=== PATIENT | female | born 1975 | race Caucasian/White ===

== ENCOUNTER 2024-02-21 16:47 | Observation (INO) ==
--- NOTE | 2024-02-21 17:18 | ED.PDOC ---
General ED Provider: Dr. RHINA FISCHER MD Chief Complaint: Shortness of Air Stated Complaint: Patient presents to ER from home via EMS complaining of shortness of breath. Reports onset was earlier today. States that albuterol neb given in route improved symptoms. Says she recently completed antibiotic and steroid course earlier this month for COPD exacerbation. Denies any fever, chills, nausea, vomiting, diarrhea. No other complaints at this time. Time Seen by Provider: 02/21/24 16:50 Mode of Arrival: Ambulance Information Source: Patient Exam Limitations: No limitations Primary Care Provider: JORGE PACK Nursing and Triage Documentation Reviewed and Agree: Yes Does Patient Take Opioids?: Yes Is Patient Opioid Naive?: No What is Opioid Naive?: *Opioid Naive implies the patient is not already taking opioids or not chronically receiving opioids on a daily basis. *PRN dosing is not "usually" associated with tolerance. *Patients are at higher risk of over-sedation and aspiration. Is Patient Opioid Tolerant?: Yes What is Opioid Tolerant?: *Opioid Tolerance implies less than the expected response to an opioid. *Acquired tolerance is defined by the patient taking 60mg of oral morphine daily (or equianalgesic dose of another opioid) for 1 week or more. *Often associated with chronic pain. *May take more than usual dose to achieve desired pain control. Review of Systems Review Of Systems Constitutional: Reports No symptoms All Other Systems: Reviewed and Negative (Except for those listed in the HPI.) [facility] Family History (Updated 02/21/24 @ 23:17 by KATHARINA PEDROZA RN) Other No known health problems Social History Smoking and tobacco status: Current every day smoker Tobacco type: cigarettes Smoking packs per day: 0.5 Years smoked: 25.2 Passive smoking exposure: Yes Smoking status start date: 10/08/98 Alcohol intake: never Substance use type: does not use Surgical History History of cholecystectomy From OV note Jorge Pack APRN 01/04/24 Z90.49 - Acquired absence of other specified parts of digestive tract (ICD- 10) History of hysterectomy From OV note Jorge Pack APRN 01/04/24 Z90.710 - Acquired absence of both cervix and uterus (ICD-10) History of pancreatic surgery From OV note Jorge Pack [facility] 01/04/24 "Suctioning" Z98.890 - Other specified postprocedural states (ICD-10) Female Reproductive History Menstrual Hx Hysterectomy: Yes Physical Exam Physical Exam Appearance: Reports Ill-appearing (Chronic), No pain distress and Well-nourished Ill-appearing: Mild Pain Distress: None Eyes: Reports IVY and EOMI ENT: Reports Ears normal, Nose normal and Oropharynx normal Neck: Supple Respiratory: Reports Airway patent, Breath sounds clear, Breath sounds equal and Respirations nonlabored Cardiovascular: Reports RRR, Pulses normal, No rub and No murmur GI/: Reports Soft and Nontender Musculoskeletal: Reports Normal strength and ROM intact Skin: Reports Warm, Dry and Normal color Neurological: Reports Sensation intact, Motor intact, Alert and Oriented Psychiatric: Reports Affect appropriate and Mood appropriate Interpretation EKG Interpretation EKG Interpretation By: ED Physician Time of EKG #1: 17:24 Rate: Tachy Rhythm: Sinus Ectopy: None [place]: NL ST Segment: Normal Interpretation: Sinus tach, possible left atrial enlargement, interpreted by me. Course Course 02/21/24 17:20 02/21/24 17:20 Orders, Labs, Meds: Lab Review 02/21/24 02/21/24 02/21/24 17:08 17:20 17:37 WBC 15.10 H RBC 4.25 Hgb 12.0 Hct 39.7 MCV 93.4 MCH 28.2 MCHC 30.2 L RDW Coeff of Cathie 15.3 H Plt Count 459 H Immature Gran % (Auto) 0.3 Neut % (Auto) 81.1 H Lymph % (Auto) 8.6 L [place] % (Auto) 3.8 Eos % (Auto) 5.8 Baso % (Auto) 0.4 Neut # (Auto) 12.2 H Lymph # (Auto) 1.3 [place] # (Auto) 0.6 Eos # (Auto) 0.9 H Baso # (Auto) 0.1 Immature Gran # (Auto) 0.0 Sodium 142.5 Potassium 3.84 Chloride 112.2 H Carbon Dioxide 20.2 L Anion Gap 13.94 BUN 6.3 L Creatinine 0.45 L Estimated GFR (MDRD) 147.00 BUN/Creatinine Ratio 14.00 Glucose 116.3 H Lactic Acid 0.53 L Calcium 8.97 Total Bilirubin 0.48 AST 23.0 ALT 9.4 Alkaline Phosphatase 90.0 Total Protein 7.22 Albumin 4.09 Globulin 3.13 Albumin/Globulin Ratio 1.30 Procalcitonin < 0.05 D-Dimer 631.76 H Urine Color Urine Clarity Urine pH Ur Specific [place] Urine Protein Urine Glucose (UA) Urine Ketones Urine Blood Urine Nitrite Urine Bilirubin Urine Urobilinogen Ur Leukocyte Esterase Urine Microscopic RBC Ur Squamous Epith Cells Urine Mucus Urine Opiates Screen Ur Oxycodone Screen Urine Methadone Screen Ur Barbiturates Screen U Tricyclic Antidepress Ur Phencyclidine Scrn Ur Amphetamine Screen U Methamphetamines Scrn U Benzodiazepines Scrn Urine Cocaine Screen U Cannabinoids Screen Influ A Molecular Assay Negative by naat Influ B Molecular Assay Negative by naat RSV Antigen Negative by naat SARS CoV-2 RNA Rapid FAITH Negative 02/21/24 19:05 WBC RBC Hgb Hct MCV MCH MCHC RDW Coeff of Cathie Plt Count Immature Gran % (Auto) Neut % (Auto) Lymph % (Auto) [place] % (Auto) Eos % (Auto) Baso % (Auto) Neut # (Auto) Lymph # (Auto) [place] # (Auto) Eos # (Auto) Baso # (Auto) Immature Gran # (Auto) Sodium Potassium Chloride Carbon Dioxide Anion Gap BUN Creatinine Estimated GFR (MDRD) BUN/Creatinine Ratio Glucose Lactic Acid Calcium Total Bilirubin AST ALT Alkaline Phosphatase Total Protein Albumin Globulin Albumin/Globulin Ratio Procalcitonin D-Dimer Urine Color Yellow Urine Clarity Clear Urine pH 5.5 Ur Specific [place] 1.020 Urine Protein Negative Urine Glucose (UA) Negative Urine Ketones Negative Urine Blood Trace-intact H Urine Nitrite Negative Urine Bilirubin Negative Urine Urobilinogen 0.2 Ur Leukocyte Esterase Negative Urine Microscopic RBC 0-2 Ur Squamous Epith Cells 2-5 Urine Mucus 1+ Urine Opiates Screen Positive H Ur Oxycodone Screen Positive H Urine Methadone Screen Negative Ur Barbiturates Screen Negative U Tricyclic Antidepress Negative Ur Phencyclidine Scrn Negative Ur Amphetamine Screen Negative U Methamphetamines Scrn Negative U Benzodiazepines Scrn Negative Urine Cocaine Screen Negative U Cannabinoids Screen Negative Influ A Molecular Assay Influ B Molecular Assay RSV Antigen SARS CoV-2 RNA Rapid FAITH Orders Category Date Time Status ADMIT OBSERVATION [PLACE PATIENT OBSERVATION] .TO ADMISSION 02/21/24 22:33 Active MEDSURG (MONITORED BED) EKG-(ED ONLY) Stat CARDIO 02/21/24 17:10 Completed NEBULIZER TREATMENT Stat CARDIO 02/21/24 17:07 Completed ACTIVITY .Up ad Elisha CARE 02/21/24 22:37 Active INTAKE & OUTPUT Q8HR CARE 02/21/24 22:37 Active NPO REMINDER: IMAGING ONCE CARE 02/21/24 18:19 Completed TELEMETRY MONITORING TELE CARE 02/21/24 22:34 Active VITAL SIGNS Q8HR CARE 02/21/24 22:37 Active REGULAR DIET DIETARY 02/22/24 Breakfast Ordered CBC W/ AUTO DIFF DAILY@0600 LAB 02/22/24 06:00 Ordered CBC W/ AUTO DIFF DAILY@0600 LAB 02/23/24 06:00 Ordered CBC W/ AUTO DIFF Stat LAB 02/21/24 17:20 Completed CMP [COMPREHENSIVE METABOLIC PANEL] Stat LAB 02/21/24 17:20 Completed COMPREHENSIVE METABOLIC PANEL DAILY@0600 LAB 02/22/24 06:00 Ordered COMPREHENSIVE METABOLIC PANEL DAILY@0600 LAB 02/23/24 06:00 Ordered D-DIMER Stat LAB 02/21/24 17:37 Completed FLU A & B MOLECULAR [FLU A/B MOLECULAR] Stat LAB 02/21/24 17:08 Completed LACTIC ACID Stat LAB 02/21/24 17:20 Completed PROCALCITONIN Stat LAB 02/21/24 17:20 Completed RSV Stat LAB 02/21/24 17:08 Completed SARS COV-2 RNA RAPID FAITH Stat LAB 02/21/24 17:08 Completed URINALYSIS C & S IF INDICATED Stat LAB 02/21/24 19:05 Completed URINE DRUG SCREEN (RAPID FOR ED) [DRUG SCREEN, URINE, LAB 02/21/24 19:05 Completed RAPID] Stat Acetaminophen [Tylenol] Meds 02/21/24 22:37 Active 650 mg PO Q4H PRN Azithromycin [Zithromax] Meds 02/21/24 22:28 Discontinued 500 mg PO ONCE STA Clonazepam [Klonopin] Meds 02/21/24 20:09 Discontinued 0.5 mg PO ONCE STA Dexamethasone Sod Phosphate [Decadron] Meds 02/21/24 17:34 Discontinued 10 mg IM ONCE STA Enoxaparin Sodium [Lovenox] Meds 02/21/24 22:18 Discontinued 50 mg SUBCUT ONCE STA Ipratropium/Albuterol Neb [Duoneb] Meds 02/21/24 17:07 Discontinued 3 ml NEB ONCE STA Ondansetron HCl/Pf [Zofran 4 mg/2 ml] Meds 02/21/24 22:37 Active 4 mg IVP Q6H PRN Ondansetron [Zofran Odt] Meds 02/21/24 17:32 Discontinued 4 mg PO ONCE STA Ondansetron [Zofran Odt] Meds 02/21/24 19:54 Discontinued 4 mg PO ONCE STA Oxycodone-Acetaminophen [Percocet 5-325] Meds 02/21/24 20:09 Discontinued 1 tab PO ONCE STA CHEST, 2 VIEWS PA & LAT Stat RADS 02/21/24 17:10 Completed CTA CHEST PE PROTOCOL Stat RADS 02/21/24 18:19 Ordered VENTILATION/PERFUSION SCAN [PULMONARY VENT/PERFUSION/ RADS 02/22/24 06:00 Ordered NM] Routine Medications Generic Name Dose Route Start Last Admin Trade Name Freq PRN Reason Stop Dose Admin Acetaminophen 650 mg 02/21/24 22:37 Acetaminophen 325 Mg Tablet PO Q4H PRN Mild Pain Albuterol/Ipratropium 3 ml 02/21/24 22:39 Ipratropium/Albuterol Vial.Neb NEB RTQ6H PRN shortness of breath Methylprednisolone Sodium Succinate 40 mg 02/22/24 02:00 Methylprednisolone Sod Succ/Pf 40 Mg/Ml Vial IVP Q8HR TIKI Ondansetron HCl 4 mg 02/21/24 22:37 Ondansetron Hcl/Pf 4 Mg/2 Ml Sdv IVP Q6H PRN Nausea / Vomiting Discontinued Medications Generic Name Dose Route Start Last Admin Trade Name Freq PRN Reason Stop Dose Admin Albuterol/Ipratropium 3 ml 02/21/24 17:07 02/21/24 17:30 Ipratropium/Albuterol Vial.Neb NEB 02/21/24 17:08 3 ml ONCE STA Administration Azithromycin 500 mg 02/21/24 22:28 02/21/24 22:39 Azithromycin 250 Mg Tablet PO 02/21/24 22:29 500 mg ONCE STA Administration Clonazepam 0.5 mg 02/21/24 20:09 02/21/24 20:16 Clonazepam 0.5 Mg Tablet PO 02/21/24 20:10 0.5 mg ONCE STA Administration Dexamethasone Sodium Phosphate 10 mg 02/21/24 17:34 02/21/24 17:52 Dexamethasone Sod Phos 10 Mg/Ml Inj IM 02/21/24 17:35 10 mg ONCE STA Administration Enoxaparin Sodium 50 mg 02/21/24 22:18 02/21/24 22:27 Enoxaparin Sodium 60 Mg/0.6 Ml Syr SUBCUT 02/21/24 22:19 50 mg ONCE STA Administration Ondansetron HCl 4 mg 02/21/24 17:32 02/21/24 17:52 Ondansetron Hcl 4 Mg Tab.Rapdis PO 02/21/24 17:33 4 mg ONCE STA Administration Ondansetron HCl 4 mg 02/21/24 19:54 02/21/24 20:03 Ondansetron Hcl 4 Mg Tab.Rapdis PO 02/21/24 19:55 4 mg ONCE STA Administration Oxycodone/Acetaminophen 1 tab 02/21/24 20:09 02/21/24 20:16 Oxycodone/Acetaminophen 5/325 Mg Tablet PO 02/21/24 20:10 1 tab [place] [address] Diagnostic Imaging Diagnostic Imaging Report : [id number] Signed Patient: MELISSA BHAKTA Acct:[id number] Medical Record: [id number] : 1975 Loc: ED Room/Bed: Age/Sex: 49 / F ADM Status: REG ER Date of Service: 02/21/24 Ordering Physician: RHINA FISCHER MD Procedure(s): CHEST, 2 VIEWS PA & LAT Report Number(s): [id number] Accession Number(s): [id number] cc: RHINA FISCHER MD; JORGE PACK , [place], [facility] EXAM: CHEST TWO VIEWS HISTORY: Shortness of breath FINDINGS: Normal cardiac and mediastinal contours. Normal pulmonary vasculature. Diffuse reticular interstitial coarsening. No consolidative opacity. Acute chest wall abnormality. Prior healed rib fractures on the left. IMPRESSION: Fibrotic lung disease without superimposed infiltrate or consolidative change. No change from 02/08/2024. Dictated By: DM JAQUEZ Signed By: DM JAQUEZ Dictated Date/Time: 02/21/241835 Transcribed Date/Time: 02/21/241835 Signed Date/Time: 02/21/24 1841 Vital Signs: Temp Pulse Resp BP Pulse Ox 02/21/24 22:03 97.9 F 88 18 105/66 93 L 02/21/24 16:49 98 F 111 H 19 128/67 93 L 10:15 - Spoke with on-call hospitalist (TIERRA Chi) regarding pt status and current workup and management for shortness of breath likely related to COPD exacerbation. Labs remarkable for WBC 15.1 and d-dimer 631.76. Multiple IV attempts including u/s guidance at bilateral AC area; unable to utilize vein in this location without collapse. Easily able to obtain a 22G IV of the R hand. Pt has received therapeutic Lovenox 50 mg, dexamethasone, and azithromycin for COPD exacerbation. Agreed to accept pt for observation admission with plan for V/Q scan in the morning to r/o PE. Discharge Plan Discharge Patient Disposition: PLACED OBSERVATION Discharge Problem: COPD (chronic obstructive pulmonary disease) Did you review [place] [employer] for ALL controlled substances?: Not Applicable ED Provider: RHINA FISCHER Condition: Good Physician Progress Note: []
[2024-02-21 17:24] LABS: BASOPHILS # (AUTO) 0.1 K/uL (0-0.2); BASOPHILS % (AUTO) 0.4 % (0.0-3.0); EOSINOPHILS # (AUTO) 0.9 K/ul (0.0-0.7); EOSINOPHILS % (AUTO) 5.8 % (0.0-7.0); HEMATOCRIT 39.7 % (37.0-47.0); IMMATURE GRANULOCYTE % (AUTO) 0.3 % (0.0-5.0); LYMPHOCYTES # (AUTO) 1.3 K/uL (0.60-3.4); LYMPHOCYTES % (AUTO) 8.6 (10.0-50.0); MEAN CORPUSCULAR HEMOGLOBIN 28.2 pg (27.0-31.0); MEAN CORPUSCULAR HGB CONC 30.2 (31.8-35.4); MEAN CORPUSCULAR VOLUME 93.4 fl (81.0-99.0); MONOCYTES # (AUTO) 0.6 K/uL (0.4-2.0); MONOCYTES % (AUTO) 3.8 (0-10); NEUTROPHILS # (AUTO) 12.2 K/ul (2.0-6.9); NEUTROPHILS % (AUTO) 81.1 % (42.2-75.2); PLATELET COUNT 459 10^3/uL (140-440); RDW COEFFICIENT OF VARIATION 15.3 % (11.6-14.8); RED BLOOD COUNT 4.25 10^6/ul (4.20-5.40)
[2024-02-21] MEDS: DUONEB NEB STA (17:30)
[2024-02-21 17:31] LABS: MOLECULAR FLU A NEGATIVE BY NAAT (NEGATIVE); MOLECULAR FLU B NEGATIVE BY NAAT (NEGATIVE); RSV MOLECULAR NEGATIVE BY NAAT (NEGATIVE); SARS COV-2 RNA RAPID NAAT NEGATIVE (NEGATIVE)
[2024-02-21 17:37] LABS: ALANINE AMINOTRANSFERASE 9.4 U/L (0-35); ALBUMIN 4.09 g/dL (3.5-5.0); BILIRUBIN,TOTAL 0.48 mg/dL (0.2-1.3); BLOOD UREA NITROGEN 6.3 mg/dL (7-17); CALCIUM 8.97 mg/dL (8.4-10.2); CARBON DIOXIDE 20.2 mmol/L (22-30.0); CHLORIDE 112.2 mmol/L (98-107); CREATININE 0.45 mg/dL (0.60-1.30); GLUCOSE 116.3 mg/dL (74-106); POTASSIUM 3.84 mmol/L (3.5-5.1); SODIUM 142.5 mmol/L (134.5-145); TOTAL PROTEIN 7.22 g/dL (6.3-8.2)
[2024-02-21] MEDS: ZOFRAN ODT PO STA ×2 (17:52→20:03)
[2024-02-21] MEDS: DECADRON IM STA (17:52)
--- NOTE | 2024-02-21 18:41 | DI ---
EXAM: CHEST TWO VIEWS HISTORY: Shortness of breath FINDINGS: Normal cardiac and mediastinal contours. Normal pulmonary vasculature. Diffuse reticular interstitial coarsening. No consolidative opacity. Acute chest wall abnormality. Prior healed rib fractures on the left. IMPRESSION: Fibrotic lung disease without superimposed infiltrate or consolidative change. Caitlyn kerr from 02/08/2024.
[2024-02-21 19:21] LABS: BILIRUBIN,URINE Negative (NEGATIVE); CLARITY,URINE Clear (CLEAR); COLOR,URINE Yellow (YELLOW); GLUCOSE, URINE (UA) Negative (NEGATIVE); KETONES,URINE Negative (NEGATIVE); LEUKOCYTE ESTERASE ,URINE Negative (NEGATIVE); NITRITE,URINE Negative (NEGATIVE); PH,URINE 5.5 (5-9); PROTEIN,URINE Negative (NEGATIVE); URINE, BLOOD Trace-intact (NEGATIVE); UROBILINOGEN,URINE 0.2 (0.2)
[2024-02-21 19:26] LABS: MUCUS,URINE 1+ (NOT PRESENT); URINE RBC, MICROSCOPIC 0-2 (0-2)
[2024-02-21 19:33] LABS: AMPHETAMINE SCREEN,URINE NEGATIVE (NEGATIVE); BARBITURATE SCREEN,URINE NEGATIVE (NEGATIVE); BENZODIAZEPINES SCREEN,URINE NEGATIVE (NEGATIVE); CANNABINOID SCREEN,URINE NEGATIVE (NEGATIVE); COCAIN SCREEN,URINE NEGATIVE (NEGATIVE); METHADONE URINE SCREEN NEGATIVE (NEGATIVE); METHAMPHETAMINES SCREEN,URINE NEGATIVE (NEGATIVE); OPIATE SCREEN,URINE POSITIVE (NEGATIVE); OXYCODONE URINE SCREEN POSITIVE (NEGATIVE); PHENCYCLIDINE SCREEN,URINE NEGATIVE (NEGATIVE); TRICYCLIC ANTIDEPRESSANTS URIN NEGATIVE (NEGATIVE)
[2024-02-21] MEDS: KLONOPIN PO STA (20:16)
[2024-02-21] MEDS: PERCOCET 5-325 PO STA (20:16)
[2024-02-21] MEDS: LOVENOX SUBCUT STA (22:27)
[2024-02-21] MEDS ORDERED: ZOFRAN 4 MG/2 ML IVP PRN (22:37)
[2024-02-21] MEDS ORDERED: TYLENOL PO PRN (22:37)
[2024-02-21] MEDS: ZITHROMAX PO STA (22:39)
[2024-02-21 23:27] VITALS: BMI 19.9
[2024-02-21] MEDS ORDERED: PERCOCET 7.5-325 PO PRN (23:28)
[2024-02-21] MEDS: NICODERM 21 MG TD SCH (23:55)
[2024-02-22] MEDS: DUONEB NEB PRN (00:08)
[2024-02-22] MEDS: PERCOCET 5-325 PO PRN (02:06)
[2024-02-22] MEDS: SOLU-MEDROL 40 MG IVP SCH (02:06)
[2024-02-22 05:34] LABS: BASOPHILS % (AUTO) 0.2 % (0.0-3.0); HEMOGLOBIN 11.9 g/dl (12.0-16.0); IMMATURE GRANULOCYTE % (AUTO) 0.3 % (0.0-5.0); LYMPHOCYTES # (AUTO) 0.6 K/uL (0.60-3.4); LYMPHOCYTES % (AUTO) 9.9 (10.0-50.0); MEAN CORPUSCULAR HEMOGLOBIN 28.1 pg (27.0-31.0); MEAN CORPUSCULAR HGB CONC 30.5 (31.8-35.4); MONOCYTES % (AUTO) 0.3 (0-10); NEUTROPHILS # (AUTO) 5.2 K/ul (2.0-6.9); NEUTROPHILS % (AUTO) 89.3 % (42.2-75.2); PLATELET COUNT 456 10^3/uL (140-440); RED BLOOD COUNT 4.24 10^6/ul (4.20-5.40)
[2024-02-22 05:45] LABS: WHITE BLOOD COUNT 5.83 K/ul (4.6-10.2)
[2024-02-22 05:47] LABS: ALANINE AMINOTRANSFERASE 9.4 U/L (0-35); ALBUMIN 3.91 g/dL (3.5-5.0); ALKALINE PHOSPHATASE 80.6 U/L (38-126); ASPARTATE AMINO TRANSFERASE 21.9 U/L (14-36); BILIRUBIN,TOTAL 0.58 mg/dL (0.2-1.3); BLOOD UREA NITROGEN 10.7 mg/dL (7-17); CALCIUM 9.22 mg/dL (8.4-10.2); CARBON DIOXIDE 21.3 mmol/L (22-30.0); CHLORIDE 110.5 mmol/L (98-107); CREATININE 0.37 mg/dL (0.60-1.30); GLUCOSE 129.1 mg/dL (74-106); POTASSIUM 4.14 mmol/L (3.5-5.1); SODIUM 140.6 mmol/L (134.5-145); TOTAL PROTEIN 7.08 g/dL (6.3-8.2)
[2024-02-22] MEDS ORDERED: PERCOCET 5-325 PO PRN (08:17)
[2024-02-22] MEDS: SYMBICORT 160-4.5 MCG INHALER IH SCH (09:10)
[2024-02-22] MEDS: DALIRESP PO SCH (09:12)
[2024-02-22] MEDS: PAXIL PO SCH (09:12)
[2024-02-22 10:30] VITALS: BP 113/67; PULSE 105; RESP 16; TEMP 97.6
[2024-02-22] MEDS: KLONOPIN PO PRN (10:31)
--- NOTE | 2024-02-22 10:54 | NM ---
EXAM: VENTILATION PERFUSION LUNG SCAN. DATE: 02/22/2024. COMPARISON: Chest x-ray Performed 02/21/2024. HISTORY: Elevated D-dimer and shortness of breath. TECHNIQUE: The patient was injected with 5.0 mCi of Tc99m MAA and a perfusion lung scan was performed . 32.0 mCi of Tc99m DTPA was used for the ventilation portion of the study. FINDINGS: There is a mild heterogeneity in radiotracer deposition but activity is observed out to the periphery all lobar segments. There is a single subsegmental perfusion defect along the right diaph ragmatic surface with minimal filling on the ventilation portion of the study that corresponds to are a of interstitial prominence on the chest x-ray.. IMPRESSION: Low probability study for the presence of pulmonary emboli..
--- NOTE | 2024-02-22 11:46 | PCM.SS ---
Provider [facility]AI [facility]HI [facility] Date Admission Date: 02/21/24 Discharge Date Discharge Date: 02/22/24 Primary Care Physician Primary Care Physician: JORGE PACK Chief Complaint Reason For Visit: SOB History of Present Illness History of Present Illness: Admitted 02/21/24 22:38, this 49 year old /WHITE/F with pmhx of COPD who presented to ER with sob starting yesterday. Patient was seen earlier in the month for SOB and was given doxycyline and augmentin. She did not take these as the augmentin was too big, but instead her PCP switched her to Levaquin. She states she took 5-6 days of levaquin and just finished it prior to coming in. She states she was also on prednisone 20 mg for 5 days which does seem to really help her. However, she just became sob and wheezy yesterday. States this made her panic and anxious and she ended up throwing up requiring zofran. She denies chest pain. In the ER her O2 sat was 93, but d dimer elevated. CXR unremarkable. They were unable to get appropriate peripheral access to do a CTA to r/o PE. She was admitted to [facility]. Peripheral IV access suitable for a VQ scan was obtained. It was negative for acute PE. She is feeling better today, on RA. She is mildly wheezy but is able to be conversational without dyspnea. She contributes most of her issues to ongoing stress, becomes tearful regarding this. Discussed seeing pcp regarding increasing her paxil if needed. She does state she has some gastritis like symptoms for last few months as well. Admits to taking BC powder with >800 mg aspirin in it a couple times per week for a headache, but nothing else seems to help. Discussed this could be contributing, along with her stress, advised trying prilosec x 2 weeks. Patient is agreeable to plan of care and feels comfortable with discharge. New nebulizer ordered for patient as well, she states she has duoneb medication at home. She also has daliresp but admits she isn't consistent with taking it. Counseled on medication compliance. 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 01/04/24 Z90.49 - Acquired absence of other specified parts of digestive tract (ICD- 10) History of hysterectomy From OV note Jorge Pack WELL TESTING OPERATOR 01/04/24 Z90.710 - Acquired absence of both cervix and uterus (ICD-10) History of pancreatic surgery From OV note Jorge Pack WELL TESTING OPERATOR 01/04/24 "Suctioning" Z98.890 - Other specified postprocedural states (ICD-10) Family History Other No known health problems Social History Smoking and tobacco status: Current every day smoker Tobacco type: cigarettes Smoking packs per day: 0.5 Years smoked: 25.2 Passive smoking exposure: Yes Smoking status start date: 10/08/98 Alcohol intake: never Substance use type: does not use Medications Mecications: Medications at Discharge (Home Meds & RX) oxycodone-acetaminophen 5 mg-325 mg tablet 1 tab PO Q6H PRN severe pain (scale score 7-10) 01/21/24 paroxetine HCl 20 mg tablet 20 mg PO QDAY 01/21/24 budesonide-formoterol HFA 160 mcg-4.5 mcg/actuation aerosol inhaler (Symbicort) 2 puff inhalation BID 02/22/24 clonazepam 0.5 mg tablet 0.5 mg PO BID PRN anxiety 02/22/24 ipratropium 0.5 mg-albuterol 3 mg (2.5 mg base)/3 mL nebulization soln 3 ml inhalation TID 02/22/24 levofloxacin 500 mg tablet 500 mg PO Q24H 02/22/24 roflumilast 500 mcg tablet 500 mcg PO DAILY 02/22/24 Allergies Allergies Allergy/AdvReac Type Severity Reaction Status Date / Time No Known Allergies Allergy Verified 02/21/24 17:15 Review of Systems Head: Reports Normocephalic and Atraumatic Cardiovascular: Denies Chest pain, Chest Pressure or Edema Respiratory: Reports Cough, Shortness of air and Wheeze Gastrointestinal: Reports Nausea and Vomiting; Denies Diarrhea, Constipation or Melena Physical Examination Appearance: Positive No Apparent Distress and Alert and Oriented x3 Head: Positive Normocephalic and Atraumatic Neck: Positive Supple and Non-Tender Heart: Positive RRR Respiratory: Positive Breath Sounds Equal, Respirations Nonlabored and Wheezes; Negative Crackles, Rhonchi or Retractions GI/: Positive Soft, Nontender, Bowel sounds normal and No Distention Extremities: Negative Edema Neurological: Positive Cranial nerves intact, Alert and Oriented Psychiatric: Positive Normal Judgement, Normal Insight, Affect Appropriate and Anxious Vital Signs (Last 4 Hours) Vital Signs Last 4 Hours: Vital Signs: Last 4 Hours 02/22/24 07:55 02/22/24 08:54 02/22/24 10:00 Temperature Temperature Source Pulse Rate Respiratory Rate Blood Pressure Blood Pressure Mean Blood Pressure Location Blood Pressure Position O2 Sat by Pulse Oximetry Oxygen Delivery Method Room Air Room Air Nasal Cannula Oxygen Flow Rate 02/22/24 10:00 02/22/24 11:00 Temperature 97.6 F Temperature Source Temporal Artery Scan Pulse Rate 105 H Respiratory Rate 16 Blood Pressure 113/67 Blood Pressure Mean 82 Blood Pressure Location Left Arm Blood Pressure Position Sitting O2 Sat by Pulse Oximetry 95 Oxygen Delivery Method Nasal Cannula Nasal Cannula Oxygen Flow Rate 2 Labs This Visit Labs This Visit: Labs This Visit 02/21/24 02/21/24 02/21/24 17:08 17:20 17:37 WBC 15.10 H RBC 4.25 Hgb 12.0 Hct 39.7 MCV 93.4 MCH 28.2 MCHC 30.2 L RDW Coeff of Cathie 15.3 H Plt Count 459 H Immature Gran % (Auto) 0.3 Neut % (Auto) 81.1 H Lymph % (Auto) 8.6 L [place] % (Auto) 3.8 Eos % (Auto) 5.8 Baso % (Auto) 0.4 Neut # (Auto) 12.2 H Lymph # (Auto) 1.3 [place] # (Auto) 0.6 Eos # (Auto) 0.9 H Baso # (Auto) 0.1 Immature Gran # (Auto) 0.0 Sodium 142.5 Potassium 3.84 Chloride 112.2 H Carbon Dioxide 20.2 L Anion Gap 13.94 BUN 6.3 L Creatinine 0.45 L Estimated GFR (MDRD) 147.00 BUN/Creatinine Ratio 14.00 Glucose 116.3 H Lactic Acid 0.53 L Calcium 8.97 Total Bilirubin 0.48 AST 23.0 ALT 9.4 Alkaline Phosphatase 90.0 Total Protein 7.22 Albumin 4.09 Globulin 3.13 Albumin/Globulin Ratio 1.30 Procalcitonin < 0.05 D-Dimer 631.76 H Urine Color Urine Clarity Urine pH Ur Specific [place] Urine Protein Urine Glucose (UA) Urine Ketones Urine Blood Urine Nitrite Urine Bilirubin Urine Urobilinogen Ur Leukocyte Esterase Urine Microscopic RBC Ur Squamous Epith Cells Urine Mucus Urine Opiates Screen Ur Oxycodone Screen Urine Methadone Screen Ur Barbiturates Screen U Tricyclic Antidepress Ur Phencyclidine Scrn Ur Amphetamine Screen U Methamphetamines Scrn U Benzodiazepines Scrn Urine Cocaine Screen U Cannabinoids Screen Influ A Molecular Assay Negative by naat Influ B Molecular Assay Negative by naat RSV Antigen Negative by naat SARS CoV-2 RNA Rapid FAITH Negative 02/21/24 02/22/24 19:05 05:15 WBC 5.83 D RBC 4.24 Hgb 11.9 L Hct 39.0 MCV 92.0 MCH 28.1 MCHC 30.5 L RDW Coeff of Cathie 15.0 H Plt Count 456 H Immature Gran % (Auto) 0.3 Neut % (Auto) 89.3 H Lymph % (Auto) 9.9 L [place] % (Auto) 0.3 Eos % (Auto) 0.0 Baso % (Auto) 0.2 Neut # (Auto) 5.2 Lymph # (Auto) 0.6 [place] # (Auto) 0.0 L Eos # (Auto) 0.0 Baso # (Auto) 0.0 Immature Gran # (Auto) 0.0 Sodium 140.6 Potassium 4.14 Chloride 110.5 H Carbon Dioxide 21.3 L Anion Gap 12.94 BUN 10.7 Creatinine 0.37 L Estimated GFR (MDRD) 184.00 BUN/Creatinine Ratio 28.91 Glucose 129.1 H Lactic Acid Calcium 9.22 Total Bilirubin 0.58 AST 21.9 ALT 9.4 Alkaline Phosphatase 80.6 Total Protein 7.08 Albumin 3.91 Globulin 3.17 Albumin/Globulin Ratio 1.23 Procalcitonin D-Dimer Urine Color Yellow Urine Clarity Clear Urine pH 5.5 Ur Specific [place] 1.020 Urine Protein Negative Urine Glucose (UA) Negative Urine Ketones Negative Urine Blood Trace-intact H Urine Nitrite Negative Urine Bilirubin Negative Urine Urobilinogen 0.2 Ur Leukocyte Esterase Negative Urine Microscopic RBC 0-2 Ur Squamous Epith Cells 2-5 Urine Mucus 1+ Urine Opiates Screen Positive H Ur Oxycodone Screen Positive H Urine Methadone Screen Negative Ur Barbiturates Screen Negative U Tricyclic Antidepress Negative Ur Phencyclidine Scrn Negative Ur Amphetamine Screen Negative U Methamphetamines Scrn Negative U Benzodiazepines Scrn Negative Urine Cocaine Screen Negative U Cannabinoids Screen Negative Influ A Molecular Assay Influ B Molecular Assay RSV Antigen SARS CoV-2 RNA Rapid FAITH Imaging Imaging: EXAM: CHEST TWO VIEWS HISTORY: Shortness of breath FINDINGS: Normal cardiac and mediastinal contours. Normal pulmonary vasculature. Diffuse reticular interstitial coarsening. No consolidative opacity. Acute chest wall abnormality. Prior healed rib fractures on the left. IMPRESSION: Fibrotic lung disease without superimposed infiltrate or consolidative change. No change from 02/08/2024. EXAM: VENTILATION PERFUSION LUNG SCAN. DATE: 02/22/2024. COMPARISON: Chest x-ray Performed 02/21/2024. HISTORY: Elevated D-dimer and shortness of breath. TECHNIQUE: The patient was injected with 5.0 mCi of Tc99m MAA and a perfusion lung scan was performed. 32.0 mCi of Tc99m DTPA was used for the ventilation portion of the study. FINDINGS: There is a mild heterogeneity in radiotracer deposition but activity is observed out to the periphery all lobar segments. There is a single subsegmental perfusion defect along the right diaphragmatic surface with minimal filling on the ventilation portion of the study that corresponds to area of interstitial prominence on the chest x-ray.. IMPRESSION: Low probability study for the presence of pulmonary emboli.. Review Review Statement: I have independently reviewed and interpreted the labs/EKGs/imaging that were ordered by the ER provider. I have reviewed all outside records that are available currently in our EMR including imaging/notes/labs from previous visits. Plan Reccomendations/Plan: 1. Acute COPD exacerbation - Solumedrol IV, received azith PO in ER, duonebs q6hr prn, O2 prn. Cont home inhalers and daliresp. 2. Elevated d dimer - Unable to perform CTA due to inadequate peripeheral IV access. Will get VQ scan to r/o PE. Pt given tx dose of lovenox in meantime. 3. Anxiety - Cont home meds Peripheral IV access suitable for a VQ scan was obtained. It was negative for acute PE. She is feeling better today, on RA. She is mildly wheezy but is able to be conversational without dyspnea. She contributes most of her issues to on going stress, becomes tearful regarding this. Discussed seeing pcp regarding increasing her paxil if needed. She does state she has some gastritis like symptoms for last few months as well. Admits to taking BC powder with >800 mg aspirin in it a couple times per week for a headache, but nothing else seems to help. Discussed this could be contributing, along with her stress, advised trying prilosec x 2 weeks. Patient is agreeable to plan of care and feels comfortable with discharge. New nebulizer ordered for patient as well, she states she has duoneb medication at home. She also has daliresp but admits she isn't consistent with taking it. Counseled on medication compliance. We discussed whether or not to trial another antibiotic as she just finished levaquin. She would like to try just steroids. Sent prednisone 20 mg bid x5 days. Discharge diagnosis: 1. Acute COPD exacerbation 2. Anxiety Additional Planning: Case discussed with ED Physician, Dr. Elizabeth. DVT Prophylaxis: Lovenox Advanced Care Plannin minutes spent discussing advance care planning. Smoking Cessation: 3 minutes spent discussing smoking cessation. Admit to: Obs Discussed Plan of Care with Dr. Nick Mckeon. Review With Patient Reviewed with Patient and Family: Patient and family have been counseled on condition and care plan and have no immediate questions. I have personally discussed and reviewed the patient's visit/current labs/imaging/decision making with Dr. Nikc Mckeon, my supervising attending. Total number of minutes spent with patient [ 85 ] min. More than 50% of the time spent with this patient was devoted to counseling and coordination of care. Time of Admission:02/21/24 22:38 Time of Discharge: 02/22/24 0930 Discharge Plan Discharge Discharge Orders: Discharge Patient (ONCE); Ordered 02/22/24 Ordered By: TAI DOSHI Activity Restrictions/Additional Instructions: DISCHARGE TO HOME F/U WITH Primary Care Provider WITHIN 1 WEEK CONSIDER PRILOSEC (OMEPRAZOLE) 20-40 MG DAILY FOR NEXT 2 WEEKS FOR STOMACH PAIN CONTINUE YOUR MEDICATIONS BEFORE; SEE MEDICATION SUMMARY DIET: NORMAL ACTIVITY: TOLERATED Use your Nebulizer as needed Instructions: COPD (Chronic Obstructive Pulmonary Disease) (DC), Chronic Lung Disease and Infection Prevention (DC) Care Plan Goals: Problem: Impaired Respiratory Status Goal: Exhibit optimal respiratory function Instructions: Activities as tolerated Apply oxygen as ordered Elevate head of bed Notify MD of increased congestion Patient Disposition: HOME SELF-CARE Prescriptions: New ondansetron 4 mg tablet,disintegrating 4 mg PO Q6HR PRN (Reason: nausea and vomiting) Qty: 15 0RF prednisone 20 mg tablet 20 mg PO BID 5 Days Qty: 10 0RF Continued oxycodone-acetaminophen 5-325 mg tablet 1 tab PO Q6H PRN (Reason: severe pain (scale score 7-10)) paroxetine HCl 20 mg tablet 20 mg PO QDAY ipratropium-albuterol 0.5 mg-3 mg(2.5 mg base)/3 mL solution for nebulization 3 ml INHALATION TID clonazepam 0.5 mg tablet 0.5 mg PO BID PRN (Reason: anxiety) budesonide-formoterol [Symbicort] 160-4.5 mcg/actuation HFA aerosol inhaler 2 puff INHALATION BID roflumilast 500 mcg tablet 500 mcg PO DAILY Discontinued levofloxacin 500 mg tablet 500 mg PO Q24H Rx Instructions: take for 10 days (02/14/2024 to 02/24/2024) Did you review [place] [employer] ANALYST for ALL controlled substances?: Not Applicable Discussed opioids are addictive and Narcan is available by prescription or from pharmacy.: No Condition: Good
[2024-02-22] MEDS: DALIRESP PO ONE (11:57)
[2024-02-23] MEDS ORDERED: DALIRESP PO SCH (09:00)
== END 2024-02-22 12:55 | disposition home or self-care (01) ==
LOC: MEDSURG B 16:47 → ED 16:47 → MEDSURG B 23:08
PROVIDERS: ADMIT Hospitalist; ATTEND Physician Assistant